=== PATIENT | female | born 1985 ===

== ENCOUNTER 2017-09-11 16:22 | Emergency (ER) | payer OTHER ==
[2017-09-11 16:40] VITALS: BP 130/70; PULSE 70; RESP 16; TEMP 97.3; O2SAT 99
--- NOTE | 2017-09-11 17:29 | ED PDOC ---
HPI: Female Pain Time Seen by Provider: 09/11/17 16:54 Chief Complaint (Nursing): Female Genitourinary Chief Complaint (Provider): vaginal itching, discharge History Per: Patient Additional Complaint(s): 32-year-old female presents to emergency department with vaginal itching and discharge 1 week. Patient was treated on August 19 for a urinary tract infection with Macrobid and she states that her dysuria has resolved but she now has intense pruritus and discharge. Patient denies concern for STD. She denies any abdominal pain, nausea, vomiting, diarrhea or constipation. Patient denies fever or chills. Past Medical History Reviewed: Historical Data, Nursing Documentation, Vital Signs Vital Signs: Last Vital Signs Temp 97.3 F L 09/11/17 16:37 Pulse 70 09/11/17 16:37 Resp 16 09/11/17 16:37 BP 130/70 09/11/17 16:37 Pulse Ox 99 09/11/17 16:37 - Medical History PMH: No Chronic Diseases - Surgical History Surgical History: No Surg Hx - Family History Family History: States: No Known Family Hx - Living Arrangements Living Arrangements: With Family - Social History Current smoker - smoking cessation education provided: No Alcohol: None Drugs: Denies - Home Medications Home Medications: Ambulatory Orders Medication Instructions Recorded Fluconazole [Diflucan] 150 mg PO ONCE #1 tab 09/11/17 Metronidazole [Metrogel] 60 gm VAG HS #1 packet 09/11/17 - Allergies Allergies/Adverse Reactions: Allergies Allergy/AdvReac Type Severity Reaction Status Date / Time No Known Allergies Allergy Verified 09/11/17 16:36 Review of Systems ROS Statement: Except As Marked, All Systems Reviewed And Found Negative Constitutional: Negative for: Fever Gastrointestinal: Negative for: Nausea, Vomiting, Abdominal Pain Genitourinary Female: Positive for: Vaginal Discharge (with pruritus). Negative for: Dysuria, Frequency, Incontinence, Hematuria, Vaginal Bleeding, Pelvic Pain, Rash Physical Exam - Reviewed Nursing Documentation Reviewed: Yes Vital Signs Reviewed: Yes - Physical Exam Appears: Positive for: Well, Non-toxic, No Acute Distress Skin: Negative for: Rash Eye Exam: Positive for: Normal appearance Cardiovascular/Chest: Positive for: Regular Rate, Rhythm Respiratory: Positive for: Normal Breath Sounds Gastrointestinal/Abdominal: Positive for: Soft. Negative for: Tenderness, Distended, Guarding, Rebound Pelvic Exam: Positive for: Other (deferred by patient) Back: Negative for: L CVA Tenderness, R CVA Tenderness Neurologic/Psych: Positive for: Alert, Oriented - Laboratory Results Urine POC: Negative Urine dip results: Positive for: Blood (small). Negative for: Leukocyte Esterase, Nitrate, Ketones, Glucose, Bilirubin, Protein - ECG O2 Sat by Pulse Oximetry: 99 Pulse Ox Interpretation: Normal Medical Decision Making Medical Decision Makin-year-old female with vaginal discharge and itchiness. Urine dip is negative for acute UTI. Patient completed course of Macrobid 2 weeks ago and now has discharge and pruritus. Pelvic exam was deferred by patient. Patient will be treated empirically with Diflucan and MetroGel prescriptions. Patient states she has follow-up this coming Saturday with [facility] for annual exam. Disposition - Clinical Impression Clinical Impression: Vaginal discharge, Vaginitis, Vaginal candidiasis - Patient ED Disposition Is Patient to be Admitted: No Counseled Patient/Family Regarding: Studies Performed, Diagnosis, Need For Followup, Rx Given - Disposition Referrals: [facility] [Outside] Disposition: Routine/Home Disposition Time: 17:28 Condition: STABLE Additional Instructions: Take prescription meds as directed. Follow-up as scheduled this coming Saturday with women's clinic. Prescriptions: Fluconazole [Diflucan] 150 mg PO ONCE #1 tab Metronidazole [Metrogel] 60 gm VAG HS #1 packet Instructions: Vaginitis (ED), Vulvovaginal Candidiasis (ED), Vaginal Discharge (ED) Forms: [email or web address] (Telugu) Print Language: [email or web address]
== END 2017-09-11 18:43 | disposition home or self-care (01) ==
LOC: H.ER 16:22
DX: B37.3 Candidiasis of vulva and vagina (principal)